=== PATIENT | female | born 1990 | race Asian ===

== ENCOUNTER 2017-10-24 09:31 | Inpatient (IN) | payer SELFPAY ==
[~2017-10-24] VITALS: Ht 152.4 cm; Wt 61.2 kg
[2017-10-25] MEDS ORDERED: PREN1SGL25 PO (01:38)
[2017-10-25] MEDS ORDERED: FERR-252 PO (01:39)
[2017-10-25] MEDS ORDERED: OXYTOCIN 10 UNITS/ML VIAL IM SCH (01:40)
[2017-10-25] MEDS ORDERED: PROMETHAZINE 25 MG/ML VIAL IVP PRN (01:40)
[2017-10-25] MEDS ORDERED: NALBUPHINE HYDROCHLORIDE 10 MG/ML VIAL IVP PRN (01:40)
[2017-10-25] MEDS ORDERED: CARBOPROST 250 MCG/ML AMP IM PRN (01:40)
[2017-10-25] MEDS ORDERED: METHYLERGONOVINE 0.2 MG/ML AMP IM PRN (01:40)
[2017-10-25] MEDS ORDERED: OXYTOCIN 20 UNITS in LACTATED RINGERS 1,000 ML IV PRN (01:45)
[2017-10-25 01:49] VITALS: BP 105/64
[2017-10-25] MEDS ORDERED: MISOPROSTOL 25 MCG TAB ONE ×2 (02:10→06:08)
[2017-10-25] MEDS: LACTATED RINGERS 1,000 ML IV SCH ×3 (02:13→18:03)
[2017-10-25 02:50] LABS: BASOPHILS # (AUTO) 0.1 K/uL (0.00-0.22); BASOPHILS % (AUTO) 0.9 % (0.0-2.0); EOSINOPHILS # (AUTO) 0.1 K/uL (0-0.4); EOSINOPHILS % (AUTO) 0.8 % (0.0-4.0); HEMATOCRIT 38.9 % (36-48); HEMOGLOBIN 13.1 g/dL (12.0-16.0); LYMPHOCYTES # (AUTO) 2.6 K/uL (2.5-16.5); LYMPHOCYTES % (AUTO) 20.6 % (20.5-51.1); MEAN CORPUSCULAR HEMOGLOBIN 31 pg (27-31); MEAN CORPUSCULAR HGB CONC 34 g/dL (33-37); MEAN CORPUSCULAR VOLUME 92.8 fL (80-94); MONOCYTES # (AUTO) 0.7 K/uL (0.8-1.0); MONOCYTES % (AUTO) 5.6 % (1.7-9.3); NEUTROPHILS # (AUTO) 9.1 K/uL (1.8-7.7); NEUTROPHILS % (AUTO) 72.1 % (42.2-75.2); PLATELET COUNT (AUTO) 171 K/uL (140-450); RED CELL DISTRIBUTION WIDTH 12.8 % (11.6-13.7); WHITE BLOOD COUNT (AUTO) 12.6 K/uL (4.8-10.8)
[2017-10-25 02:55] LABS: ANION GAP 14.6 (8-16); CARBON DIOXIDE 23.2 mmol/L (21-32); CREATININE 0.5 mg/dL (0.6-1.3); POTASSIUM 3.8 mmol/L (3.5-5.1)
[2017-10-25 03:09] LABS: APPEARANCE,URINE HAZY (CLEAR); BILIRUBIN,URINE NEGATIVE (NEGATIVE); BLOOD, URINE NEGATIVE (NEGATIVE); COLOR,URINE YELLOW (YELLOW); LEUKOCYTE ESTERASE ,URINE 3+ (NEGATIVE); NITRITE, URINE NEGATIVE (NEGATIVE); PH,URINE 7.5 (5.0-9.0); UGLUCOSE NEGATIVE (NEGATIVE)
[2017-10-25 03:14] LABS: ALBUMIN 2.7 g/dL (3.4-5.0); TOTAL BILIRUBIN 0.2 mg/dL (0.0-1.0)
[2017-10-25 04:14] LABS: RBC,URINE 0-5 (RARE) /HPF (0-5); WBC,URINE 0-5 (RARE) /HPF (0-5)
--- NOTE | 2017-10-25 08:31 | NUR ---
PATIENT HAS BEEN SCREENED AND CATEGORIZED LOW NUTRITION RISK. PATIENT WILL BE SEEN WITHIN 7 DAYS OF ADMISSION. 10/31/[address]
[2017-10-25] MEDS ORDERED: BUPIVACAINE 0.125%/NS PREMIX 250 ML ONE (18:05)
[2017-10-25] MEDS ORDERED: BUPIVACAINE 0.125%/NS PREMIX 250 ML EPI SCH (18:50)
[2017-10-25] MEDS ORDERED: AMPICILLIN 2,000 MG in NACL 0.9% 100 ML IV SCH (18:55)
[2017-10-25] MEDS ORDERED: AMPICILLIN 2,000 MG VIAL ONE (18:59)
[2017-10-25] MEDS ORDERED: AMPICILLIN 1,000 MG VIAL ONE (23:10)
[2017-10-26] MEDS ORDERED: AMPICILLIN 1,000 MG in NACL 0.9% 50 ML IV SCH ×2
[2017-10-26] MEDS ORDERED: OXYTOCIN 10 UNITS/ML VIAL ONE (01:04)
[2017-10-26] MEDS: LACTATED RINGERS 1,000 ML IV SCH (02:30)
[2017-10-26] MEDS ORDERED: AMPICILLIN 1,000 MG VIAL ONE (02:48)
[2017-10-26] MEDS ORDERED: HYDROcodone/APAP 5/325 MG 1 TAB TAB PO PRN (04:35)
[2017-10-26] MEDS ORDERED: TEMAZEPAM 15 MG CAP PO PRN (04:35)
[2017-10-26] MEDS ORDERED: BENZOCAINE/MENTHOL 20%-0.5% 60 GM CAN TP PRN (04:35)
[2017-10-26] MEDS ORDERED: OXYTOCIN 10 UNITS/ML VIAL IM PRN (04:35)
[2017-10-26] MEDS ORDERED: oxyCODONE/APAP 5/325 MG 1 TAB TAB PO PRN (04:35)
[2017-10-26] MEDS ORDERED: METHYLERGONOVINE 0.2 MG/ML AMP IM PRN (04:35)
[2017-10-26] MEDS ORDERED: MEASLES, MUMPS, AND RUBELLA 1 VIAL SQVAC PRN (04:35)
[2017-10-26 10:18] LABS: RAPID PLASMA REAGIN NON-REACTIVE (Non Reactiv)
[2017-10-26] MEDS: IBUPROFEN 800 MG TAB PO PRN (20:58)
[2017-10-26] MEDS ORDERED: DOCUSATE SOD/SENNA 50/8.6 MG 1 TAB PO SCH (21:00)
[2017-10-27 06:34] LABS: HEMATOCRIT 31.5 % (36-48); HEMOGLOBIN 10.6 g/dL (12.0-16.0)
[2017-10-27] MEDS: IBUPROFEN 800 MG TAB PO PRN (16:35)
[2017-10-27] MEDS ORDERED: BISACODYL 5 MG TABEC PO SCH (17:06)
== END 2017-10-27 18:45 | disposition home or self-care (01) | DRG 775 ==
LOC: MLD 10-25 00:33 → MFCC 10-26 08:54
PROVIDERS: ADMIT Obstetrics & Gynecology; ATTEND Obstetrics & Gynecology
PROC: 3E0R3BZ Introduction of Anesthetic Agent into Spinal Canal, Percutaneous Approach (ICD-10-PCS; principal; 2017-10-27)
PROC: 10D07Z6 Extraction of Products of Conception, Vacuum, Via Natural or Artificial Opening (ICD-10-PCS; 2017-10-27)
PROC: 00HU33Z Insertion of Infusion Device into Spinal Canal, Percutaneous Approach (ICD-10-PCS; 2017-10-27)
PROC: 3E0234Z Introduction of Serum, Toxoid and Vaccine into Muscle, Percutaneous Approach (ICD-10-PCS; 2017-10-27)
PROC: 3E033VJ Introduction of Other Hormone into Peripheral Vein, Percutaneous Approach (ICD-10-PCS; 2017-10-27)
PROC: 3E0P7VZ Introduction of Hormone into Female Reproductive, Via Natural or Artificial Opening (ICD-10-PCS; 2017-10-27)
PROC: 0W8NXZZ Division of Female Perineum, External Approach (ICD-10-PCS; 2017-10-27)
DX: O77.0 Labor and delivery complicated by meconium in amniotic fluid (principal); O66.5 Attempted application of vacuum extractor and forceps; Z23 Encounter for immunization; Z37.0 Single live birth; Z3A.40 40 weeks gestation of pregnancy
CPT/HCPCS: 36415; 59200; 80053; 81001; 85018; 85025; 86592; 86886; 86900; 86901; 87086; 90715; C1758; J0290; J2590; J3490; J7120